=== PATIENT | female | born 2000 | race Caucasian/White ===

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

== ENCOUNTER 2018-04-09 14:03 | Emergency (ER) | payer OTHER ==
--- NOTE | 2018-04-09 14:17 | ERPHSYRPT ---
- History of Present Illness Time Seen by Provider: 04/09/18 14:17 Historian: patient, family Exam Limitations: no limitations Physician History: 17 y/o white female presents with sudden onset bilat suprapubic pain. began this am and has been intermittently severely painful. pt denies n/v/d, denies cp , denies soa. pt denies vaginal bleeding or other vaginal discharge. denies flank pain, dysuria, hematuria and frequency. pt has a h/o ovarian cysts. pt is 2 weeks out from her last menstrual period. pt is not on any medications at this time. pt has a reaction to toradol. 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 on 04/12/18 Timing/Duration: today Activities at Onset: none Quality: cramping, stabbing Abdominal Pain Onset Location: suprapubic (bilat) Pain Radiation: no radiation Severity of Pain-Max: moderate Severity of Pain-Current: mild Modifying Factors: Improves With: nothing Associated Symptoms: No back, No diarrhea, No nausea, No vomiting Previous symptoms: same symptoms as today (but not as severe as today) Allergies/Adverse Reactions: No Known Drug Allergies Allergy (Verified 04/09/18 14:22) Hx Tetanus, Diphtheria Vaccination/Date Given: Yes (2016) - Review of Systems Constitutional: No Symptoms Eyes: No Symptoms Ears, Nose, & Throat: No Symptoms Respiratory: No Symptoms Cardiac: No Symptoms Abdominal/Gastrointestinal: Abdominal Pain (bilat suprapubic) Genitourinary Symptoms: No Symptoms Musculoskeletal: No Symptoms Skin: No Symptoms Neurological: No Symptoms Psychological: No Symptoms Endocrine: No Symptoms Hematologic/Lymphatic: No Symptoms Immunological/Allergic: No Symptoms All Other Systems: Reviewed and Negative - Past Medical History Pertinent Past Medical History: No Neurological History: No Pertinent History ENT History: No Pertinent History Cardiac History: No Pertinent History Respiratory History: No Pertinent History Endocrine Medical History: No Pertinent History Musculoskeletal History: No Pertinent History GI Medical History: No Pertinent History History: No Pertinent History Psycho-Social History: No Pertinent History Female Reproductive Disorders: No Pertinent History - Past Surgical History Past Surgical History: Yes Neuro Surgical History: No Pertinent History Cardiac: No Pertinent History Respiratory: No Pertinent History Gastrointestinal: No Pertinent History Genitourinary: No Pertinent History Musculoskeletal: Other Female Surgical History: No Pertinent History Other Surgical History: foreign body removal right foot - Social History Smoking Status: Current every day smoker Exposure to second hand smoke: Yes Drug Use: none Patient Lives Alone: No - Nursing Vital Signs Nursing Vital Signs: Initial Vital Signs Temperature 97.4 F 04/09/18 14:09 Pulse Rate 82 04/09/18 14:09 Blood Pressure 113/78 04/09/18 14:09 O2 Sat by Pulse Oximetry 100 04/09/18 14:09 Pain Scale Pain Intensity 8 - Physical Exam General Appearance: mild distress, alert, anxiety Eye Exam: PERRL/EOMI Ears, Nose, Throat Exam: normal ENT inspection, moist mucous membranes Neck Exam: normal inspection, non-tender, supple, full range of motion Respiratory Exam: normal breath sounds, lungs clear, airway intact, No chest tenderness, No respiratory distress Cardiovascular Exam: regular rate/rhythm, normal heart sounds, normal peripheral pulses Gastrointestinal/Abdomen Exam: soft, normal bowel sounds, tenderness (mild suprapubic), guarding, No rebound Pelvic Exam: not done Rectal Exam: not done Back Exam: normal inspection, normal range of motion, No CVA tenderness, No vertebral tenderness Extremity Exam: normal inspection, normal range of motion, pelvis stable Neurologic Exam: alert, oriented x 3, cooperative, head of history II-XII nml as tested Skin Exam: normal color, warm, dry Lymphatic Exam: No adenopathy SpO2 Interpretation: normal O2 Delivery: Room Air - Course Nursing assessment & vital signs reviewed: Yes Ordered Tests: Active Orders 24 hr Category Date Time Status ABDOMEN AND PELVIS W/0 CONTRAS [CT] Stat Exams 04/09/18 14:41 Completed AMYLASE Stat Lab 04/09/18 15:00 Completed CBC W DIFF Stat Lab 04/09/18 15:00 Completed CMP Stat Lab 04/09/18 15:00 Completed HCG,QUALITATIVE URINE Stat Lab 04/09/18 15:00 Completed LIPASE Stat Lab 04/09/18 15:00 Completed UA W/RFX UR CULTURE Stat Lab 04/09/18 15:00 Completed Medication Summary Discontinued Medications Generic Name Dose Route Start Last Admin Trade Name Freq PRN Reason Stop Dose Admin Hydromorphone HCl 0.5 mg 04/09/18 14:41 04/09/18 15:02 Hydromorphone 1 Mg/Ml Ampule IV 04/09/18 14:42 0.5 mg STAT ONE Administration Hydromorphone HCl Confirm 04/09/18 14:55 Hydromorphone 1 Mg/Ml Ampule Administered 04/09/18 14:56 Dose 1 mg .ROUTE .STK-MED ONE Hydromorphone HCl 0.5 mg 04/09/18 15:41 04/09/18 15:49 Hydromorphone 1 Mg/Ml Ampule IV 04/09/18 15:42 0.5 mg STAT ONE Administration Hydromorphone HCl Confirm 04/09/18 15:46 Hydromorphone 1 Mg/Ml Ampule Administered 04/09/18 15:47 Dose 1 mg .ROUTE .STK-MED ONE Sodium Chloride 1,000 mls @ 999 mls/hr 04/09/18 14:41 04/09/18 16:11 Sodium Chloride 0.9% 1000 Ml IV 04/09/18 15:41 Infused .Q1H1M STA Infusion Sodium Chloride Confirm 04/09/18 14:55 Sodium Chloride 0.9% 1000 Ml Administered 04/09/18 14:56 Dose 1,000 mls @ ud .ROUTE .STK-MED ONE Ondansetron HCl 4 mg 04/09/18 14:41 04/09/18 15:03 Zofran 4 Mg/2 Ml Vial IV 04/09/18 14:42 4 mg STAT ONE Administration Ondansetron HCl Confirm 04/09/18 14:55 Zofran 4 Mg/2 Ml Vial Administered 04/09/18 14:56 Dose 4 mg .ROUTE .STK-MED ONE Lab/Rad Data: Laboratory Result Diagrams 04/09/18 15:00 04/09/18 15:00 Laboratory Results 04/09/18 04/09/18 04/09/18 Range/Units 15:00 15:00 15:00 WBC (4.0-10.5) K/mm3 RBC (4.1-5.4) M/mm3 Hgb (12.0-16.0) gm/dl Hct (35-47) % MCV (78-100) fl MCH (26-32) pg MCHC (32-36) g/dl RDW (11.5-14.0) % Plt Count (150-450) K/mm3 MPV (6-9.5) fl Gran % (36.0-66.0) % Eos # (Auto) (0-0.5) Absolute Lymphs (auto) (1.0-4.6) Absolute Monos (auto) (0.0-1.3) Lymphocytes % (24.0-44.0) % Monocytes % (0.0-12.0) % Eosinophils % (0.00-5.0) % Basophils % (0.0-0.4) % Absolute Granulocytes (1.4-6.9) Basophils # (0-0.4) Sodium 141 (137-145) mmol/L Potassium 4.2 (3.5-5.1) mmol/L Chloride 108 H (98-107) mmol/L Carbon Dioxide 27 (22-30) mmol/L Anion Gap 10.3 (5-15) MEQ/L BUN 9 (7-17) mg/dL Creatinine 0.64 (0.52-1.04) mg/dL Estimated GFR > 60.0 ML/MIN Glucose 79 (74-106) mg/dL Calcium 9.1 (8.4-10.2) mg/dL Total Bilirubin 0.20 (0.2-1.3) mg/dL AST 20 (14-36) U/L ALT 21 (0-35) U/L Alkaline Phosphatase 71 (38-126) U/L Serum Total Protein 7.1 (6.3-8.2) g/dL Albumin 4.0 (3.5-5.0) g/dL Amylase 85 (30-110) U/L Lipase 135 (23-300) U/L Urine Color YELLOW (YELLOW) Urine Appearance SLIGHTLY CLOUDY (CLEAR) Urine pH 5.0 (5-6) Ur Specific [place] 1.025 (1.005-1.025) Urine Protein 30 (Negative) Urine Ketones NEGATIVE (NEGATIVE) Urine Blood NEGATIVE (0-5) Morgan/ul Urine Nitrite NEGATIVE (NEGATIVE) Urine Bilirubin NEGATIVE (NEGATIVE) Urine Urobilinogen NEGATIVE (0-1) mg/dL Ur Leukocyte Esterase NEGATIVE (NEGATIVE) Urine WBC (Auto) 3-5 (0-5) /HPF Urine RBC (Auto) 0-2 (0-2) /HPF U Epithel Cells (Auto) RARE (FEW) /HPF Urine Bacteria (Auto) RARE (NEGATIVE) /HPF Urine Mucus (Auto) MANY (NEGATIVE) /HPF Urine Culture Reflexed NO (NO) Urine Glucose NEGATIVE (NEGATIVE) mg/dL Urine HCG, Qual NEGATIVE (Negative) 04/09/18 Range/Units 15:00 WBC 12.1 H (4.0-10.5) K/mm3 RBC 4.38 (4.1-5.4) M/mm3 Hgb 13.6 (12.0-16.0) gm/dl Hct 41.6 (35-47) % MCV 95.0 (78-100) fl MCH 31.1 (26-32) pg MCHC 32.7 (32-36) g/dl RDW 13.3 (11.5-14.0) % Plt Count 241 (150-450) K/mm3 MPV 10.2 H (6-9.5) fl Gran % 58.2 (36.0-66.0) % Eos # (Auto) 0.12 (0-0.5) Absolute Lymphs (auto) 4.14 (1.0-4.6) Absolute Monos (auto) 0.78 (0.0-1.3) Lymphocytes % 34.2 (24.0-44.0) % Monocytes % 6.4 (0.0-12.0) % Eosinophils % 1.0 (0.00-5.0) % Basophils % 0.2 (0.0-0.4) % Absolute Granulocytes 7.05 H (1.4-6.9) Basophils # 0.03 (0-0.4) Sodium (137-145) mmol/L Potassium (3.5-5.1) mmol/L Chloride (98-107) mmol/L Carbon Dioxide (22-30) mmol/L Anion Gap (5-15) MEQ/L BUN (7-17) mg/dL Creatinine (0.52-1.04) mg/dL Estimated GFR ML/MIN Glucose (74-106) mg/dL Calcium (8.4-10.2) mg/dL Total Bilirubin (0.2-1.3) mg/dL AST (14-36) U/L ALT (0-35) U/L Alkaline Phosphatase (38-126) U/L Serum Total Protein (6.3-8.2) g/dL Albumin (3.5-5.0) g/dL Amylase (30-110) U/L Lipase (23-300) U/L Urine Color (YELLOW) Urine Appearance (CLEAR) Urine pH (5-6) Ur Specific [place] (1.005-1.025) Urine Protein (Negative) Urine Ketones (NEGATIVE) Urine Blood (0-5) Morgan/ul Urine Nitrite (NEGATIVE) Urine Bilirubin (NEGATIVE) Urine Urobilinogen (0-1) mg/dL Ur Leukocyte Esterase (NEGATIVE) Urine WBC (Auto) (0-5) /HPF Urine RBC (Auto) (0-2) /HPF U Epithel Cells (Auto) (FEW) /HPF Urine Bacteria (Auto) (NEGATIVE) /HPF Urine Mucus (Auto) (NEGATIVE) /HPF Urine Culture Reflexed (NO) Urine Glucose (NEGATIVE) mg/dL Urine HCG, Qual (Negative) - Progress Progress: improved, pain not gone completely, re-examined Progress Note: 04/09/18 16:[address] scan abd/pelvis-mild fecal stasis; no acute process Counseled pt/family regarding: lab results, diagnosis, need for follow-up, rad results - Departure Time of Disposition: 16:24 Departure Disposition: Home Clinical Impression: Abdominal pain, Constipation Condition: Stable Critical Care Time: No Referrals: GAB MURILLO MD [Primary Care Provider] - Additional Instructions: drink plenty of fluids. add ibuprofen for pain. keep your appointment with concrete technician on 04/12/18 Prescriptions: Hydrocodone/APAP 5-325 Tab^^^ [[place] 5-325 Tablet^^^] 1 tab PO Q8H PRN PRN #5 tablet MDD 3 PRN Reason: Pain
[2018-04-09] MEDS ORDERED: Zofran 4 MG/2 ML VIAL IV ONE (14:41)
[2018-04-09] MEDS ORDERED: Sodium Chloride 0.9% 1000 ML 1,000 ML IV STA (14:41)
[2018-04-09] MEDS ORDERED: Hydromorphone 1 mg/ml Ampule IV ONE ×2 (14:41→15:41)
[2018-04-09] MEDS ORDERED: Zofran 4 MG/2 ML VIAL ONE (14:55)
[2018-04-09] MEDS ORDERED: Hydromorphone 1 mg/ml Ampule ONE ×2 (14:55→15:46)
[2018-04-09] MEDS ORDERED: Sodium Chloride 0.9% 1000 ML 1,000 ML ONE (14:55)
[2018-04-09 15:05] LABS: BASOPHIL % 0.2 % (0.0-0.4); Basophil (Absolute #) 0.03 (0-0.4); Eosinophil (Absolute #) 0.12 (0-0.5); Granulocyte Absolute (ANC) 7.05 (1.4-6.9); Granulocytes % 58.2 % (36.0-66.0); Hematocrit 41.6 % (35-47); Hemoglobin 13.6 gm/dl (12.0-16.0); Lymphocyte (Absolute #) 4.14 (1.0-4.6); Lymphocytes % 34.2 % (24.0-44.0); Mean Corpuscular Hemoglobin 31.1 pg (26-32); Mean Corpuscular Hgb Concent. 32.7 g/dl (32-36); Mean Platelet Volume 10.2 fl (6-9.5); Monocyte (Absolute #) 0.78 (0.0-1.3); Monocytes % 6.4 % (0.0-12.0); Platelet Count 241 K/mm3 (150-450); Red Blood Count 4.38 M/mm3 (4.1-5.4); Red Cell Distribution Width 13.3 % (11.5-14.0); White Blood Count 12.1 K/mm3 (4.0-10.5)
[2018-04-09 15:17] LABS: Appearance SLIGHTLY CLOUDY (CLEAR); Bacteria RARE /HPF (NEGATIVE); Bilirubin NEGATIVE (NEGATIVE); Blood NEGATIVE Ery/ul (0-5); Epithelial Cells RARE /HPF (FEW); Glucose NEGATIVE (NEGATIVE); Ketones NEGATIVE (NEGATIVE); Leukocyte Esterase NEGATIVE (NEGATIVE); Mucus MANY /HPF (NEGATIVE); Nitrite NEGATIVE (NEGATIVE); Protein,Urine Dip 30 (Negative); RBC 0-2 /HPF (0-2); Specific Gravity 1.025 (1.005-1.025); Urobilinogen NEGATIVE mg/dL (0-1)
[2018-04-09 15:22] LABS: ALKALINE PHOSPHATASE 71 U/L (38-126); AMYLASE 85 U/L (30-110); ANION GAP 10.3 MEQ/L (5-15); BLOOD UREA NITROGEN 9 mg/dL (7-17); CHLORIDE 108 mmol/L (98-107); Calcium 9.1 mg/dL (8.4-10.2); Carbon Dioxide 27 mmol/L (22-30); Creatinine 1 0.64 mg/dL (0.52-1.04); Glucose 79 mg/dL (74-106); LIPASE 135 U/L (23-300); Potassium 4.2 mmol/L (3.5-5.1); SGOT/AST 20 U/L (14-36); SGPT/ALT 21 U/L (0-35); SODIUM 141 mmol/L (137-145); Total Protein 7.1 g/dL (6.3-8.2)
--- NOTE | 2018-04-09 16:11 | XRAY ---
Indication: Pelvic pain. History polycystic ovary syndrome. Multiple contiguous axial images obtained through the abdomen and pelvis without contrast as ordered. Comparison: None Lung bases demonstrates minimal fibrosis/scarring. No infiltrate or effusion. Heart is not enlarged. Noncontrasted stomach and bowel loops appear nonobstructed. Normal appendix. Mild diffuse scattered colonic fecal debris throughout. No free fluid/air. Remaining liver, gallbladder, pancreas, spleen, adrenal glands, kidneys, ureters, bladder, uterus, and aorta appear unremarkable for noncontrast exam. Osseous structures intact. Small left femur head bone island. No ventral or inguinal hernias. Impression: 1. Mild fecal stasis without obstruction and left femur head bone island. 2. Remaining CT abdomen/pelvis without contrast exam is negative. CTDI 19.96
[2018-04-09 16:50] VITALS: BP 106/66; PULSE 90; O2SAT 97
== END 2018-04-09 16:53 | disposition home or self-care (01) ==
LOC: ED 14:03
DX: R10.9 Unspecified abdominal pain (principal); K59.00 Constipation, unspecified
CPT/HCPCS: 36000; 36415; 74176; 80053; 81001; 82150; 83690; 84703; 85025; 96360; 96374; 96375; 96376; 99284; J1170; J2405

== ENCOUNTER 2018-08-12 19:28 | Emergency (ER) | payer OTHER ==
[2018-08-12] MEDS ORDERED: Sodium Chloride 0.9% 1000 ML 1,000 ML IV STA (19:45)
[2018-08-12] MEDS ORDERED: Zofran 4 MG/2 ML VIAL IV ONE (19:45)
[2018-08-12] MEDS ORDERED: Hydromorphone 1 mg/ml Ampule IV ONE ×2 (19:45→20:41)
--- NOTE | 2018-08-12 19:45 | ERPHSYRPT ---
- History of Present Illness Time Seen by Provider: 08/12/18 19:40 Historian: patient, family Exam Limitations: no limitations Physician History: 17 y/o white female presents with sudden onset of lower suprapubic abd pain. 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 pain is severe. pain occurred during sex with boyfriend. no vaginal or rectal bleeding. pt has a h/o ovarian cyst. Timing/Duration: today, sudden, worse Activities at Onset: activity (sexual intercourse) Abdominal Pain Onset Location: suprapubic Pain Radiation: no radiation Severity of Pain-Max: moderate Severity of Pain-Current: moderate Modifying Factors: Improves With: nothing Associated Symptoms: denies symptoms Previous symptoms: same symptoms as today Allergies/Adverse Reactions: ketorolac [From Toradol] Allergy (Verified 08/12/18 19:39) Hx Tetanus, Diphtheria Vaccination/Date Given: Yes (2016) - Review of Systems Constitutional: No Symptoms Eyes: No Symptoms Ears, Nose, & Throat: No Symptoms Respiratory: No Symptoms Cardiac: No Symptoms Abdominal/Gastrointestinal: Abdominal Pain (suprapubic) Genitourinary Symptoms: No Symptoms Musculoskeletal: No Symptoms Skin: No Symptoms Neurological: No Symptoms Psychological: No Symptoms Endocrine: No Symptoms Hematologic/Lymphatic: No Symptoms Immunological/Allergic: No Symptoms All Other Systems: Reviewed and Negative - Past Medical History Pertinent Past Medical History: No Neurological History: No Pertinent History ENT History: No Pertinent History Cardiac History: No Pertinent History Respiratory History: No Pertinent History Endocrine Medical History: No Pertinent History Musculoskeletal History: No Pertinent History GI Medical History: No Pertinent History History: No Pertinent History Psycho-Social History: No Pertinent History Female Reproductive Disorders: No Pertinent History - Past Surgical History Past Surgical History: Yes Neuro Surgical History: No Pertinent History Cardiac: No Pertinent History Respiratory: No Pertinent History Gastrointestinal: No Pertinent History Genitourinary: No Pertinent History Musculoskeletal: Other Female Surgical History: No Pertinent History Other Surgical History: foreign body removal right foot - Social History Smoking Status: Current every day smoker How long have you smoked: 2 years Exposure to second hand smoke: Yes Drug Use: none Patient Lives Alone: No - Nursing Vital Signs Nursing Vital Signs: Initial Vital Signs Pulse Rate 51 L 08/12/18 19:29 Blood Pressure 217/79 08/12/18 19:29 Pain Scale Pain Intensity 8 - Physical Exam General Appearance: moderate distress, alert, anxiety Eye Exam: PERRL/EOMI, eyes nml inspection Ears, Nose, Throat Exam: normal ENT inspection, moist mucous membranes Neck Exam: normal inspection, non-tender, supple, full range of motion Respiratory Exam: normal breath sounds, lungs clear, airway intact, No chest tenderness, No respiratory distress Cardiovascular Exam: regular rate/rhythm, normal heart sounds, normal peripheral pulses Gastrointestinal/Abdomen Exam: soft, tenderness (suprapubic midline), guarding, No rebound Pelvic Exam: not done Rectal Exam: not done Back Exam: normal inspection, normal range of motion, No CVA tenderness, No vertebral tenderness Extremity Exam: normal inspection, normal range of motion, pelvis stable Neurologic Exam: alert, oriented x 3, 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, 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 Skin Exam: normal color, warm, dry Lymphatic Exam: No adenopathy SpO2 Interpretation: normal O2 Delivery: Room Air Ordered Tests: Active Orders 24 hr Category Date Time Status IV Insertion STAT Care 08/12/18 19:45 Active ABDOMEN AND PELVIS W/0 CONTRAS [CT] Stat Exams 08/12/18 19:46 Taken AMYLASE Stat Lab 08/12/18 19:45 Completed CBC W DIFF Stat Lab 08/12/18 19:45 Completed CMP Stat Lab 08/12/18 19:45 Completed HCG QUALITATIVE,SERUM Stat Lab 08/12/18 19:45 Completed LIPASE Stat Lab 08/12/18 19:45 Completed Lactic Acid Stat Lab 08/12/18 19:53 Completed UA W/RFX UR CULTURE Stat Lab 08/12/18 19:45 Completed Medication Summary Discontinued Medications Generic Name Dose Route Start Last Admin Trade Name Yelitza PRN Reason Stop Dose Admin Hydromorphone HCl 1 mg 08/12/18 19:45 08/12/18 19:57 Hydromorphone 1 Mg/Ml Ampule IV 08/12/18 19:46 1 mg STAT ONE Administration Hydromorphone HCl Confirm 08/12/18 19:52 Hydromorphone 1 Mg/Ml Ampule Administered 08/12/18 19:53 Dose 1 mg .ROUTE .STK-MED ONE Hydromorphone HCl 0.5 mg 08/12/18 20:41 08/12/18 21:00 Hydromorphone 1 Mg/Ml Ampule IV 08/12/18 20:42 0.5 mg STAT ONE Administration Hydromorphone HCl Confirm 08/12/18 20:58 Hydromorphone 1 Mg/Ml Ampule Administered 08/12/18 20:59 Dose 1 mg .ROUTE .STK-MED ONE Sodium Chloride 1,000 mls @ 999 mls/hr 08/12/18 19:45 08/12/18 20:58 Sodium Chloride 0.9% 1000 Ml IV 08/12/18 20:45 Infused .Q1H1M STA Infusion Sodium Chloride Confirm 08/12/18 19:53 Sodium Chloride 0.9% 1000 Ml Administered 08/12/18 19:54 Dose 1,000 mls @ ud .ROUTE .STK-MED ONE Ondansetron HCl 4 mg 08/12/18 19:45 08/12/18 19:57 Zofran 4 Mg/2 Ml Vial IV 08/12/18 19:46 4 mg STAT ONE Administration Ondansetron HCl Confirm 08/12/18 19:52 Zofran 4 Mg/2 Ml Vial Administered 08/12/18 19:53 Dose 4 mg .ROUTE .STK-MED ONE Lab/Rad Data: Laboratory Result Diagrams 08/12/18 19:45 08/12/18 19:45 Laboratory Results 08/12/18 08/12/18 08/12/18 Range/Units 19:53 19:45 19:45 WBC (4.0-10.5) K/mm3 RBC (4.1-5.4) M/mm3 Hgb (12.0-16.0) gm/dl Hct (35-47) % MCV (78-100) fl MCH (26-32) pg MCHC (32-36) g/dl RDW (11.5-14.0) % Plt Count (150-450) K/mm3 MPV (6-9.5) fl Gran % (36.0-66.0) % Eos # (Auto) (0-0.5) Absolute Lymphs (auto) (1.0-4.6) Absolute Monos (auto) (0.0-1.3) Lymphocytes % (24.0-44.0) % Monocytes % (0.0-12.0) % Eosinophils % (0.00-5.0) % Basophils % (0.0-0.4) % Absolute Granulocytes (1.4-6.9) Basophils # (0-0.4) Sodium (137-145) mmol/L Potassium (3.5-5.1) mmol/L Chloride (98-107) mmol/L Carbon Dioxide (22-30) mmol/L Anion Gap (5-15) MEQ/L BUN (7-17) mg/dL Creatinine (0.52-1.04) mg/dL Estimated GFR ML/MIN Glucose (74-106) mg/dL Lactic Acid 0.8 (0.4-2.0) Calcium (8.4-10.2) mg/dL Total Bilirubin (0.2-1.3) mg/dL AST (14-36) U/L ALT (0-35) U/L Alkaline Phosphatase (38-126) U/L Serum Total Protein (6.3-8.2) g/dL Albumin (3.5-5.0) g/dL Amylase (30-110) U/L Lipase (23-300) U/L Serum , Qual NEGATIVE (Negative) Urine Color STRAW (YELLOW) Urine Appearance CLEAR (CLEAR) Urine pH 6.0 (5-6) Ur Specific [place] 1.006 (1.005-1.025) Urine Protein NEGATIVE (Negative) Urine Ketones NEGATIVE (NEGATIVE) Urine Blood NEGATIVE (0-5) Morgan/ul Urine Nitrite NEGATIVE (NEGATIVE) Urine Bilirubin NEGATIVE (NEGATIVE) Urine Urobilinogen NEGATIVE (0-1) mg/dL Ur Leukocyte Esterase NEGATIVE (NEGATIVE) Urine WBC (Auto) NONE (0-5) /HPF Urine RBC (Auto) NONE (0-2) /HPF U Epithel Cells (Auto) NONE (FEW) /HPF Urine Mucus (Auto) SLIGHT (NEGATIVE) /HPF Urine Culture Reflexed NO (NO) Urine Glucose NEGATIVE (NEGATIVE) mg/dL 08/12/18 08/12/18 Range/Units 19:45 19:45 WBC 9.6 (4.0-10.5) K/mm3 RBC 4.56 (4.1-5.4) M/mm3 Hgb 14.3 (12.0-16.0) gm/dl Hct 42.5 (35-47) % MCV 93.2 (78-100) fl MCH 31.4 (26-32) pg MCHC 33.6 (32-36) g/dl RDW 13.0 (11.5-14.0) % Plt Count 232 (150-450) K/mm3 MPV 10.7 H (6-9.5) fl Gran % 50.6 (36.0-66.0) % Eos # (Auto) 0.14 (0-0.5) Absolute Lymphs (auto) 3.90 (1.0-4.6) Absolute Monos (auto) 0.64 (0.0-1.3) Lymphocytes % 40.8 (24.0-44.0) % Monocytes % 6.7 (0.0-12.0) % Eosinophils % 1.5 (0.00-5.0) % Basophils % 0.4 (0.0-0.4) % Absolute Granulocytes 4.84 (1.4-6.9) Basophils # 0.04 (0-0.4) Sodium 139 (137-145) mmol/L Potassium 4.2 (3.5-5.1) mmol/L Chloride 105 (98-107) mmol/L Carbon Dioxide 22 (22-30) mmol/L Anion Gap 16.7 H (5-15) MEQ/L BUN 10 (7-17) mg/dL Creatinine 0.63 (0.52-1.04) mg/dL Estimated GFR > 60.0 ML/MIN Glucose 95 (74-106) mg/dL Lactic Acid (0.4-2.0) Calcium 9.7 (8.4-10.2) mg/dL Total Bilirubin 0.50 (0.2-1.3) mg/dL AST 29 (14-36) U/L ALT 20 (0-35) U/L Alkaline Phosphatase 69 (38-126) U/L Serum Total Protein 8.5 H (6.3-8.2) g/dL Albumin 4.9 (3.5-5.0) g/dL Amylase 84 (30-110) U/L Lipase 59 (23-300) U/L Serum , Qual (Negative) Urine Color (YELLOW) Urine Appearance (CLEAR) Urine pH (5-6) Ur Specific [place] (1.005-1.025) Urine Protein (Negative) Urine Ketones (NEGATIVE) Urine Blood (0-5) Morgan/ul Urine Nitrite (NEGATIVE) Urine Bilirubin (NEGATIVE) Urine Urobilinogen (0-1) mg/dL Ur Leukocyte Esterase (NEGATIVE) Urine WBC (Auto) (0-5) /HPF Urine RBC (Auto) (0-2) /HPF U Epithel Cells (Auto) (FEW) /HPF Urine Mucus (Auto) (NEGATIVE) /HPF Urine Culture Reflexed (NO) Urine Glucose (NEGATIVE) mg/dL - Progress Progress: improved, pain not gone completely, re-examined Progress Note: 08/12/18 21:26 ct abd/pelvis-no acute findings. Counseled pt/family regarding: lab results, diagnosis, need for follow-up, rad results - Departure Departure Disposition: Home Clinical Impression: Abdominal pain Condition: Stable Critical Care Time: No Referrals: GAB MURILLO MD [Primary Care Provider] - Additional Instructions: follow up tomorrow with primary doctor for further management
[2018-08-12] MEDS ORDERED: Hydromorphone 1 mg/ml Ampule ONE ×3 (19:52→21:55)
[2018-08-12] MEDS ORDERED: Zofran 4 MG/2 ML VIAL ONE (19:52)
[2018-08-12] MEDS ORDERED: Sodium Chloride 0.9% 1000 ML 1,000 ML ONE (19:53)
[2018-08-12 20:02] LABS: BASOPHIL % 0.4 % (0.0-0.4); Basophil (Absolute #) 0.04 (0-0.4); Eosinophil % 1.5 % (0.00-5.0); Eosinophil (Absolute #) 0.14 (0-0.5); Granulocyte Absolute (ANC) 4.84 (1.4-6.9); Granulocytes % 50.6 % (36.0-66.0); Hematocrit 42.5 % (35-47); Hemoglobin 14.3 gm/dl (12.0-16.0); Lymphocytes % 40.8 % (24.0-44.0); Mean Cell Volume 93.2 fl (78-100); Mean Corpuscular Hemoglobin 31.4 pg (26-32); Mean Corpuscular Hgb Concent. 33.6 g/dl (32-36); Mean Platelet Volume 10.7 fl (6-9.5); Monocyte (Absolute #) 0.64 (0.0-1.3); Monocytes % 6.7 % (0.0-12.0); Platelet Count 232 K/mm3 (150-450); Red Blood Count 4.56 M/mm3 (4.1-5.4); White Blood Count 9.6 K/mm3 (4.0-10.5)
[2018-08-12 20:14] LABS: ALBUMIN 4.9 g/dL (3.5-5.0); ALKALINE PHOSPHATASE 69 U/L (38-126); AMYLASE 84 U/L (30-110); ANION GAP 16.7 MEQ/L (5-15); BLOOD UREA NITROGEN 10 mg/dL (7-17); CHLORIDE 105 mmol/L (98-107); Calcium 9.7 mg/dL (8.4-10.2); Carbon Dioxide 22 mmol/L (22-30); Creatinine 1 0.63 mg/dL (0.52-1.04); Glucose 95 mg/dL (74-106); Potassium 4.2 mmol/L (3.5-5.1); SGOT/AST 29 U/L (14-36); SGPT/ALT 20 U/L (0-35); SODIUM 139 mmol/L (137-145); Total Protein 8.5 g/dL (6.3-8.2)
[2018-08-12 21:10] LABS: Appearance CLEAR (CLEAR); Bilirubin NEGATIVE (NEGATIVE); Blood NEGATIVE Ery/ul (0-5); Glucose NEGATIVE (NEGATIVE); Ketones NEGATIVE (NEGATIVE); Leukocyte Esterase NEGATIVE (NEGATIVE); Mucus SLIGHT /HPF (NEGATIVE); Nitrite NEGATIVE (NEGATIVE); Protein,Urine Dip NEGATIVE (Negative); Specific Gravity 1.006 (1.005-1.025); Urobilinogen NEGATIVE mg/dL (0-1)
[2018-08-12] MEDS ORDERED: Hydromorphone 1 mg/ml Ampule IM ONE (21:29)
[2018-08-12] MEDS ORDERED: NORCO 5/325 MG PO ONE (21:30)
[2018-08-12 21:55] VITALS: BP 148/65; PULSE 69; O2SAT 95
[2018-08-12] MEDS ORDERED: NORCO 5/325 MG ONE (21:55)
--- NOTE | 2018-08-13 10:49 | XRAY ---
Exam: CT of the abdomen and pelvis without IV contrast from 08/12/2018. CTDI: 18.82 Comparison: CT of the abdomen and pelvis without IV contrast from 04/09/2018. Indication: 17-year-old female with suprapubic pain during coitus with partner, no vaginal or rectal bleeding, history of ovarian cysts Technique: Non-IV contrast axial images were obtained through the abdomen and pelvis. Reconstructed coronal and sagittal images were created and reviewed. Findings: The visualized lung bases appear clear. Evaluation of the solid organs of the abdomen is decreased on a non-IV contrast only. However, no gross abnormality of the liver, spleen, or pancreas is seen. The gallbladder is partially distended and reveals no dense calcifications within it. No definite biliary duct distention is seen. The adrenal glands appear of normal size and configuration. The kidneys appear of normal size and shape. No renal calculi or hydronephrosis is seen. The abdominal aorta appears of normal diameter. No abnormal retroperitoneal lymphadenopathy is seen. I see no evidence of ventral hernia or free intraperitoneal air. Scattered stool is seen throughout the colon. I see no evidence of bowel obstruction or bowel wall thickening. I see no evidence of acute appendicitis. The urinary bladder is moderately distended, but appears otherwise unremarkable. The uterus is mildly anteflexed. Both ovaries appear grossly unremarkable. There is no significant free intraperitoneal fluid or enlarged pelvic lymph nodes. No significant diverticula are seen. The bones reveal a calcified bone island within the left femoral head and a tiny bone island within the medial aspect of the left pubis representing no change. No acute fracture or aggressive bone lesion is seen. Impression: 1. No acute process is seen within the abdomen or pelvis. This is essentially unchanged from 04/09/2018.
== END 2018-08-12 22:14 | disposition home or self-care (01) ==
LOC: ED 19:28
DX: R10.9 Unspecified abdominal pain (principal)
CPT/HCPCS: 36000; 36415; 74176; 80053; 81001; 81025; 82150; 83605; 83690; 85025; 96360; 96372; 96374; 96375; 96376; 99284; J1170; J2405; A9270-GY

== ENCOUNTER 2018-11-25 17:57 | Emergency (ER) | payer OTHER ==
[2018-11-25 18:15] VITALS: BP 152/84; PULSE 90
[2018-11-25 18:17] VITALS: O2SAT 95
--- NOTE | 2018-11-25 18:49 | ERPHSYRPT ---
- History of Present Illness Time Seen by Provider: 11/25/18 18:15 Source: patient Exam Limitations: no limitations Patient Subjective Stated Complaint: Skin rash Triage Nursing Assessment: Patient ambulated back to ED and transferred self to bed. Patient A+O X 3. Patient's skin pink, warm and dry. Patient complains of rash to left outer lower leg and left outer arm. Patient has raised, hard, warm area noted to left outer arm. Patient also has raised, hard, warm area to outer left leg with redness. Patient states pain to left outer leg is constant burning pain 7/10. Physician History: Patient has pain red skin lesion to the left lateral lower leg, left outer proximal forearm and back. She has had similar lesions in the past. Timing/Duration: day(s) (3) Quality: burning, painful Severity: moderate Location: extremities (left lower leg, left forearm) Possible Causes: no cause identified Modifying Factors: Improves With: other (nothing tried) Associated Symptoms: change in skin texture (redness, tender), No blisters, No difficulty breathing, No edema, No fever, No flushing, No headache, No hives, No jaundice, No malaise, No nasal congestion, No numbness, No pallor, No paresthesia, No petechiae, No sore throat, No swelling/mass/lumps, No tingling Allergies/Adverse Reactions: ketorolac [From Toradol] Allergy (Verified 11/25/18 18:05) Hx Tetanus, Diphtheria Vaccination/Date Given: Yes (2016) Hx Influenza Vaccination/Date Given: No Hx Pneumococcal Vaccination/Date Given: No Immunizations Up to Date: Yes - Review of Systems Constitutional: No Fever, No Chills, No Fatigue Eyes: No Eye Pain, No Vision Changes Ears, Nose, & Throat: No Mouth Swelling, No Throat Pain, No Throat Swelling, No Painful Swallowing Respiratory: No Cough, No Dyspnea Cardiac: No Chest Pain, No Palpitations, No Syncope Abdominal/Gastrointestinal: No Abdominal Pain, No Nausea, No Vomiting Genitourinary Symptoms: No Dysuria, No Frequency, No Hematuria, No Flank Pain Musculoskeletal: No Back Pain, No Neck Pain, No Joint Pain, No Joint Swelling Skin: Cellulitis, No Pruritis, No Rash Neurological: No Focal Weakness, No Parasthesia, No Sensory Changes Psychological: No Anxiety, No Emotional Lability Endocrine: No Hair Changes, No Excessive Sweating Hematologic/Lymphatic: No Easy Bleeding, No Easy Bruising All Other Systems: Reviewed and Negative - Past Medical History Pertinent Past Medical History: No Neurological History: No Pertinent History ENT History: No Pertinent History Cardiac History: No Pertinent History Respiratory History: No Pertinent History Endocrine Medical History: No Pertinent History Musculoskeletal History: No Pertinent History GI Medical History: No Pertinent History History: No Pertinent History Psycho-Social History: No Pertinent History Female Reproductive Disorders: No Pertinent History - Past Surgical History Past Surgical History: Yes Neuro Surgical History: No Pertinent History Cardiac: No Pertinent History Respiratory: No Pertinent History Gastrointestinal: No Pertinent History Genitourinary: No Pertinent History Musculoskeletal: Other Female Surgical History: No Pertinent History Other Surgical History: foreign body removal right foot - Social History Smoking Status: Never smoker How long have you smoked: 2 years Exposure to second hand smoke: Yes Drug Use: marijuana Patient Lives Alone: No - Female History Hx Last Menstrual Period: November 03 Hx Now: No - Nursing Vital Signs Nursing Vital Signs: Initial Vital Signs Temperature 99.1 F 11/25/18 18:07 Pulse Rate 90 11/25/18 18:07 Respiratory Rate 18 11/25/18 18:07 Blood Pressure 152/84 11/25/18 18:07 O2 Sat by Pulse Oximetry 99 11/25/18 18:07 Pain Scale Pain Intensity 7 - Physical Exam General Appearance: no apparent distress Eye Exam: eyes nml inspection, scleral icterus Neck Exam: normal inspection, non-tender, supple, full range of motion, No meningismus Respiratory Exam: normal breath sounds, lungs clear, airway intact, No chest tenderness, No respiratory distress, No diminished breath sounds, No accessory muscle use, No crackles/rales, No rhonchi, No wheezing, No stridor Cardiovascular Exam: regular rate/rhythm, normal heart sounds, normal peripheral pulses, capillary refill <2 sec Gastrointestinal/Abdomen Exam: soft, normal bowel sounds, No tenderness, No distention, No mass, No rebound Back Exam: normal inspection, No CVA tenderness, No vertebral tenderness, No rash Extremity Exam: normal inspection, normal range of motion, No escamilla, No contusions, No elana's sign, No pedal edema, No swelling Neurologic Exam: alert, oriented x 3, cooperative, 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, normal mood/affect, sensation nml, No motor deficits Skin Exam: normal color, warm, dry, other (redness that is confluent in the left lower lateral extremity measuring about 4cm with no drainage; 2cm erythematous patch to the proximal lateral forearm, non-fluctuant, no drainage) SpO2 Interpretation: normal SpO2: 95 O2 Delivery: Room Air - Departure Departure Disposition: Home Clinical Impression: Cellulitis of left lower leg, Cellulitis of left forearm, Elevated blood pressure reading without diagnosis of hypertension Condition: Good Critical Care Time: No Referrals: GAB MURILLO MD [Primary Care Provider] - 11/27/18 Instructions: Cellulitis (Skin Infection), Adult (DC), DASH Diet Additional Instructions: Return if any worse pain, redness, swelling, new drainage, new fever aany concerning signs or symptoms that were not present at today's emergency department visit for immediate reevaluation in the emergency department. Prescriptions: Chlorhexidine Gluconate [HIBICLENS 4% Scrub] 1 ml TOP DAILY #1 bottle Smz/Tmp Ds Tablet [Bactrim Ds Tablet] 1 tab PO Q12H #20 tablet
== END 2018-11-25 19:10 | disposition home or self-care (01) ==
LOC: ED 17:57
DX: L03.116 Cellulitis of left lower limb (principal); L03.114 Cellulitis of left upper limb; R03.0 Elevated blood-pressure reading, without diagnosis of hypertension
CPT/HCPCS: 99283

== ENCOUNTER 2020-04-01 11:03 | Observation (INO) | payer OTHER ==
[2020-04-01 11:36] VITALS: BP 119/70; PULSE 85
[2020-04-01] MEDS ORDERED: Lactated Ringers 1,000 ML IV ONE (13:04)
[2020-04-01] MEDS ORDERED: Zofran 4 MG/2 ML VIAL IV ONE (13:15)
[2020-04-01 14:10] LABS: Hemoglobin 12.2 gm/dl (12.0-16.0); Mean Cell Volume 93.1 fl (78-100); Mean Corpuscular Hemoglobin 29.9 pg (26-32); Mean Corpuscular Hgb Concent. 32.1 g/dl (32-36); Mean Platelet Volume 10.1 fl (7.5-11.0); Platelet Count 408 K/mm3 (150-450); Red Blood Count 4.08 M/mm3 (4.1-5.4); Red Cell Distribution Width 13.4 % (11.5-14.0); White Blood Count 22.9 K/mm3 (4.0-10.5)
[2020-04-01 14:49] LABS: BLOOD UREA NITROGEN 7 mg/dL (7-17); CHLORIDE 107 mmol/L (98-107); Calcium 9.5 mg/dL (8.4-10.2); Carbon Dioxide 20 mmol/L (22-30); Creatinine 1 0.42 mg/dL (0.52-1.04); EST GLOMERULAR FILTRATION RATE > 60.0 ML/MIN; Glucose 74 mg/dL (74-106); SODIUM 134 mmol/L (137-145)
[2020-04-01 15:44] LABS: Lymphocytes 13 % (24-44); Monocyte 5 % (0.0-12.0); Neutrophils 82 % (36.0-66.0); Platelet Estimate NORMAL (NORMAL); Total Cells Counted 100; Toxic Granulation 1+
== END 2020-04-01 15:30 | disposition home or self-care (01) ==
LOC: OB 11:03
PROVIDERS: ADMIT Obstetrics & Gynecology; ATTEND Obstetrics & Gynecology
DX: O21.9 Vomiting of pregnancy, unspecified (principal); Z3A.33 33 weeks gestation of pregnancy
CPT/HCPCS: 36415; 80048; 83880; 85025; G0378; J2405

== ENCOUNTER 2020-05-06 12:59 | Observation (INO) | payer OTHER ==
[2020-05-06 13:30] VITALS: BP 134/77; PULSE 106
== END 2020-05-06 14:30 | disposition home or self-care (01) ==
LOC: OB 12:59
PROVIDERS: ADMIT Obstetrics & Gynecology; ATTEND Obstetrics & Gynecology
DX: Z34.03 Encounter for supervision of normal first pregnancy, third trimester (principal); Z3A.38 38 weeks gestation of pregnancy
CPT/HCPCS: 59025; G0378

== ENCOUNTER 2020-05-07 09:30 | Inpatient (IN) | payer OTHER ==
[2020-05-07] MEDS ORDERED: XYLOCAINE 1% HCL 20 ML MDV IJ PRN (19:50)
[2020-05-07] MEDS ORDERED: Zofran 4 MG/2 ML VIAL IV PRN (19:50)
[2020-05-07 21:50] LABS: Absolute Neutrophil Ct (ANC) 7.74 (1.4-6.9); BASOPHIL % 0.2 % (0.0-0.4); Basophil (Absolute #) 0.02 (0-0.4); Eosinophil % 0.8 % (0.00-5.0); Eosinophil (Absolute #) 0.09 (0-0.5); Hematocrit 32.2 % (35-47); Hemoglobin 10.4 gm/dl (12.0-16.0); Lymphocyte (Absolute #) 2.92 (1.0-4.6); Lymphocytes % 25.2 % (24.0-44.0); Mean Cell Volume 91.2 fl (78-100); Mean Corpuscular Hemoglobin 29.5 pg (26-32); Mean Corpuscular Hgb Concent. 32.3 g/dl (32-36); Mean Platelet Volume 10.4 fl (7.5-11.0); Monocyte (Absolute #) 0.82 (0.0-1.3); Monocytes % 7.1 % (0.0-12.0); Neutrophil % 66.7 % (36.0-66.0); Platelet Count 335 K/mm3 (150-450); Red Blood Count 3.53 M/mm3 (4.1-5.4); Red Cell Distribution Width 14.3 % (11.5-14.0); White Blood Count 11.6 K/mm3 (4.0-10.5)
[2020-05-07 22:07] LABS: Amphetamine,Urine NEGATIVE (NEGATIVE); Barbiturate,Urine NEGATIVE (NEGATIVE); Benzodiazepine,Urine NEGATIVE (NEGATIVE); Cocaine,Urine NEGATIVE (NEGATIVE); Methadone,Urine NEGATIVE (NEGATIVE); Opiate,Urine NEGATIVE (NEGATIVE); PCP,Urine NEGATIVE (NEGATIVE); THC,Urine POSITIVE (NEGATIVE)
[2020-05-08] MEDS: TYLENOL EXTRA STRENGTH 500 MG PO PRN ×3 (01:17→18:24)
[2020-05-08] MEDS: Lactated Ringers 1,000 ML IV SCH ×3 (04:48→12:17)
[2020-05-08] MEDS ORDERED: OB EPIDURAL NAROPIN/SUFENTANIL IN NACL EPIDURAL PRN (09:25)
[2020-05-08] MEDS ORDERED: Lactated Ringers 1,000 ML IV ONE (09:25)
[2020-05-08] MEDS ORDERED: Ephedrine Sulfate 50 MG/ML IV PRN (09:25)
[2020-05-08] MEDS ORDERED: PITOCIN 30 UNITS/ LR 500 ML 30 UNITS/500 ML IV.SOLN. IV SCH (12:00)
[2020-05-08] MEDS: PITOCIN 30 UNITS/ LR 500 ML 30 UNITS/500 ML IV.SOLN. IV SCH (12:11)
[2020-05-08] MEDS ORDERED: Adacel Vial IM ONE (14:38)
[2020-05-08] MEDS ORDERED: LANSINOH 40 GM TOP PRN (14:38)
[2020-05-08] MEDS ORDERED: Dermoplast Spray TP PRN (14:38)
[2020-05-08] MEDS: TUCKS TP PRN (15:02)
[2020-05-08] MEDS: MOTRIN 400 MG PO PRN ×2 (15:02→22:17)
[2020-05-08] MEDS: Colace 100 MG PO SCH (22:16)
[2020-05-09] MEDS: TYLENOL EXTRA STRENGTH 500 MG PO PRN ×2 (01:31→20:19)
[2020-05-09] MEDS: NORCO 5/325 MG PO PRN ×3 (03:05→23:59)
[2020-05-09] MEDS: MOTRIN 400 MG PO PRN ×3 (06:07→22:04)
[2020-05-09 06:13] LABS: Absolute Neutrophil Ct (ANC) 12.21 (1.4-6.9); BASOPHIL % 0.1 % (0.0-0.4); Basophil (Absolute #) 0.01 (0-0.4); Eosinophil % 0.4 % (0.00-5.0); Eosinophil (Absolute #) 0.05 (0-0.5); Hematocrit 27.3 % (35-47); Hemoglobin 8.6 gm/dl (12.0-16.0); Lymphocyte (Absolute #) 0.98 (1.0-4.6); Lymphocytes % 7.1 % (24.0-44.0); Mean Cell Volume 92.9 fl (78-100); Mean Corpuscular Hemoglobin 29.3 pg (26-32); Mean Corpuscular Hgb Concent. 31.5 g/dl (32-36); Mean Platelet Volume 10.1 fl (7.5-11.0); Monocyte (Absolute #) 0.61 (0.0-1.3); Monocytes % 4.4 % (0.0-12.0); Platelet Count 231 K/mm3 (150-450); Red Blood Count 2.94 M/mm3 (4.1-5.4); Red Cell Distribution Width 14.4 % (11.5-14.0); White Blood Count 13.9 K/mm3 (4.0-10.5)
[2020-05-09] MEDS: Colace 100 MG PO SCH ×2 (09:27→22:04)
[2020-05-09] MEDS: FERREX 150 PO SCH (09:27)
[2020-05-09] MEDS: TUCKS TP PRN (17:06)
[2020-05-09] MEDS: Lactated Ringers 1,000 ML IV SCH ×3 (22:04→22:06)
[2020-05-09] MEDS: PITOCIN 30 UNITS/ LR 500 ML 30 UNITS/500 ML IV.SOLN. IV SCH (22:05)
[2020-05-10 01:08] VITALS: O2SAT 98
[2020-05-10] MEDS: TYLENOL EXTRA STRENGTH 500 MG PO PRN ×2 (05:35→10:22)
[2020-05-10] MEDS: MOTRIN 400 MG PO PRN ×2 (05:36→14:55)
--- NOTE | 2020-05-10 09:11 | PCM.NOTE ---
Date and Time: 05/10/20909 Subjective Assessment: ppd 2 pt resting in bed and doing well vss afebrile abd; soft uterus; firm lochia; mild hgb; 8.6 a/p sp ppd 2 dc home today fu office 3 wks OBJECTIVE DATA Vital Signs: Vital Signs - 24 hr Temp Pulse Resp BP Pulse Ox 05/10/20 08:00 98.4 F 81 20 131/78 98 05/10/20 06:00 98.4 F 67 20 113/53 98 05/10/20 01:00 98.4 F 73 18 127/64 98 05/09/20 20:00 98.6 F 82 18 128/60 100 05/09/20 14:00 99.4 F 98 H 20 124/69 100 Pain Assessment - Last Documented Pain Intensity [Bilateral 4 Lower] Pain Intensity 0 Pain Scale Used 0-10 Pain Scale Intake and Output: Intake & Output 05/07/20 05/08/20 05/09/20 05/10/20 11:59 11:59 11:59 11:59 Intake Total 2850 675 1800 Output Total 400 400 Balance 2450 275 1800 Weight 99.798 kg Lab Results: Lab Results-Last 24 Hours 05/07/20 Range/Units 00:00 Hep Bs Antigen Negative (Negative)
--- NOTE | 2020-05-10 09:17 | PCM.DS ---
Discharge Summary Date of Admission: 05/08/20 09:30 Admitting Physician: FARSHAD CABELLO DO Consults: Consults on Case 05/08/20 14:42 Notify Physician ROUTINE Primary Care Provider: GAB MURILLO Allergies Allergies ketorolac [From Toradol] Allergy (Verified 11/25/18 18:05) Hospital Summary - Hospital Course Hospital Course: pt admitted on may 07 for induction and delivered live baby girl via without complication on may 08. pt had received 3 doses of cytotec with subsequent pitocin and had an epidural during her labor. pt delivered without complication and during period did well and had hgb of 8.6 . pt given iron supplementation upon discharge. pt advisd to fu in 3 wks for care. all questions answered to her satisfaction. - Vitals & Intake/Output Vital Signs: Vital Signs Temperature 98.4 F 05/10/20 08:00 Pulse Rate 81 05/10/20 08:00 Respiratory Rate 20 05/10/20 08:00 Blood Pressure 131/78 05/10/20 08:00 O2 Sat by Pulse Oximetry 98 05/10/20 08:00 Intake & Output: Intake & Output 05/07/20 05/08/20 05/09/20 05/10/20 11:59 11:59 11:59 11:59 Intake Total 2850 675 1800 Output Total 400 400 Balance 2450 275 1800 Weight 99.798 kg - Lab Result Diagrams: 05/09/20 05:09 Lab Results-Last 24 Hrs: Lab Results-Last 24 Hours 05/07/20 Range/Units 00:00 Hep Bs Antigen Negative (Negative) - Procedures and Test Procedures and Tests throughout Hospitalization: Therapy Orders & Screens 05/08/20 13:45 Standby ROUTINE Comment: Final Diagnosis/Problem List - Final Discharge Diagnosis/Problem (1) Vaginal delivery Current Visit: Yes Status: Acute Code(s): O80 - ENCOUNTER FOR FULL-TERM UNCOMPLICATED DELIVERY - Discharge Disposition: Home, Self-Care Condition: Stable Prescriptions: No Action Vits W-Ca,Fe,FA(<1Mg) [] 1 mg PO DAILY Follow up with: GAB MURILLO MD [Primary Care Provider] - FARSHAD CABELLO DO [ACTIVE STAFF] - Call for Appointment (should fu in 3 wks for care.)
[2020-05-10] MEDS: FERREX 150 PO SCH (10:22)
[2020-05-10] MEDS: Colace 100 MG PO SCH (10:22)
[2020-05-10 15:11] VITALS: BP 119/57; PULSE 80
== END 2020-05-10 18:50 | disposition home or self-care (01) | DRG 807 ==
LOC: OB 09:30 → OBSVTOIN 05-08 09:30
PROVIDERS: ADMIT Obstetrics & Gynecology; ATTEND Obstetrics & Gynecology
PROC: 10E0XZZ Delivery of Products of Conception, External Approach (ICD-10-PCS; principal; 2020-05-08)
PROC: 0KQM0ZZ Repair Perineum Muscle, Open Approach (ICD-10-PCS; 2020-05-08)
DX: O70.1 Second degree perineal laceration during delivery (principal); Z37.0 Single live birth; Z3A.39 39 weeks gestation of pregnancy; D64.9 Anemia, unspecified
CPT/HCPCS: 36415; 59409; 80307; 85025; 87340; 90715; 94799; G0378; J2590; J2795; A9270-GY

== ENCOUNTER 2022-09-30 01:46 | Observation (INO) | payer OTHER ==
[2022-09-30 04:07] VITALS: BP 123/55; PULSE 105; RESP 18; TEMP 98.3; O2SAT 97
[2022-09-30 04:08] LABS: Appearance Cloudy (Clear); Bacteria Moderate /HPF (None Seen); Bilirubin Negative (Negative); Blood Negative (Negative); Epithelial Cells Rare /HPF (None Seen); Glucose, Urine Negative (Negative); Hyaline Casts NONE SEEN /LPF (0-2); Ketones Negative (Negative); Leukocyte Esterase Negative (Negative); Nitrite Negative (Negative); Ph 5.5 (4.6-8.0); Protein,Urine Dip Trace (Negative); RBC 0-2 /HPF (0-5); Specific Gravity >=1.030 (1.005-1.030)
[2022-09-30 04:11] LABS: ADD URINE CULTURE? YES (NO)
[2022-09-30 05:46] LABS: Hematocrit 27.6 % (35-47); Mean Corpuscular Hgb Concent. 32.6 g/dL (32-36); Mean Platelet Volume 9.2 fL (7.5-11.0); Platelet Count 484 x10^3/uL (150-450); Red Cell Distribution Width 14.4 % (11.5-14.0); White Blood Count 17.8 x10^3/uL (4.0-10.5)
[2022-09-30 05:58] LABS: ALBUMIN 2.7 g/dL (3.5-5.0); ALKALINE PHOSPHATASE 176 U/L (38-126); ANION GAP 9.5 MEQ/L (5-15); BLOOD UREA NITROGEN 8 mg/dL (7-17); CHLORIDE 108 mmol/L (98-107); Calcium 8.3 mg/dL (8.4-10.2); Carbon Dioxide 20 mmol/L (22-30); Creatinine 1 0.41 mg/dL (0.52-1.04); EST GLOMERULAR FILTRATION RATE > 60.0 ML/MIN; Glucose 81 mg/dL (74-106); Potassium 3.8 mmol/L (3.5-5.1); SGOT/AST 21 U/L (14-36); SGPT/ALT 14 U/L (0-35); SODIUM 133 mmol/L (137-145); Total Protein 5.4 g/dL (6.3-8.2)
[2022-09-30] MEDS ORDERED: NON-FORMULARY ITEM (Prenatal Vits W-Ca,Fe,Fa(<1mg) [Prenatal] 1 EACH Tablet) PO SCH (10:00)
[2022-09-30] MEDS ORDERED: THERAGRAN MULTIVITAMIN PO SCH (10:00)
== END 2022-09-30 06:40 | disposition home or self-care (01) ==
LOC: OB 01:46 → UNDOADMOB 01:46
PROVIDERS: ADMIT Family Medicine; ATTEND Family Medicine
DX: Z34.83 Encounter for supervision of other normal pregnancy, third trimester (principal); Z3A.38 38 weeks gestation of pregnancy
CPT/HCPCS: 36415; 80053; 81001; 85027; 87086; G0378; G0379

== ENCOUNTER 2022-10-05 13:03 | Inpatient (IN) | payer OTHER ==
[2022-10-05] MEDS ORDERED: Zofran 4 MG/2 ML VIAL IV PRN (13:07)
[2022-10-05] MEDS ORDERED: XYLOCAINE 1% HCL 20 ML MDV IJ PRN (18:00)
[2022-10-05 19:06] LABS: Absolute Neutrophil Ct (ANC) 9.86 x10^3/uL (1.4-6.9); BASOPHIL % 0.3 % (0.0-0.4); Basophil (Absolute #) 0.05 x10^3/uL (0-0.4); Eosinophil % 0.8 % (0.00-5.0); Eosinophil (Absolute #) 0.12 x10^3/uL (0-0.5); Hematocrit 28.5 % (35-47); Hemoglobin 9.2 g/dL (12.0-16.0); IMMATURE GRAN # 0.19 x10^3u/L (0.00-0.03); IMMATURE GRAN % 1.3 % (0.00-0.4); Lymphocytes % 22.8 % (24.0-44.0); Mean Cell Volume 89.1 fL (78-100); Mean Corpuscular Hemoglobin 28.8 pg (26-32); Mean Corpuscular Hgb Concent. 32.3 g/dL (32-36); Monocyte (Absolute #) 0.97 x10^3/uL (0.0-1.3); Monocytes % 6.7 % (0.0-12.0); NUCLEATED RBC # 0.02 x10^3u/L (0.00-0.01); NUCLEATED RBC % 0.1 % (0.00-0.1); Neutrophil % 68.1 % (36.0-66.0); Platelet Count 480 x10^3/uL (150-450); Red Cell Distribution Width 13.9 % (11.5-14.0); White Blood Count 14.5 x10^3/uL (4.0-10.5)
[2022-10-05] MEDS: CYTOTEC PO SCH ×2 (19:46→21:44)
[2022-10-05 21:05] LABS: ABO TYPING A; Antibody Screen NEGATIVE (NEGATIVE); RH TYPING POSITIVE
[2022-10-05 21:08] LABS: Amphetamine,Urine NEGATIVE (NEGATIVE); Barbiturate,Urine NEGATIVE (NEGATIVE); Benzodiazepine,Urine NEGATIVE (NEGATIVE); Cocaine,Urine NEGATIVE (NEGATIVE); Methadone,Urine NEGATIVE (NEGATIVE); Opiate,Urine NEGATIVE (NEGATIVE); PCP,Urine NEGATIVE (NEGATIVE); THC,Urine POSITIVE (NEGATIVE)
[2022-10-05] MEDS: Lactated Ringers 1,000 ML IV SCH (21:47)
[2022-10-05] MEDS ORDERED: STADOL 2 MG IV PRN (21:55)
[2022-10-05] MEDS: Tums EX 750 MG PO PRN (22:04)
[2022-10-05] MEDS: Nubain 10 MG/ML IV PRN (22:29)
[2022-10-06] MEDS: Lactated Ringers 1,000 ML IV SCH ×4 (02:00→09:26)
[2022-10-06] MEDS: CYTOTEC PO SCH ×3 (02:01→04:04)
[2022-10-06] MEDS: Nubain 10 MG/ML IV PRN (02:30)
[2022-10-06] MEDS ORDERED: PITOCIN 30 UNITS/ LR 500 ML 30 UNITS/500 ML PLAST..BAG IV SCH (06:00)
[2022-10-06] MEDS ORDERED: Ephedrine Sulfate 50 MG/ML IV PRN (08:00)
[2022-10-06] MEDS ORDERED: FENTANYL 2 MCG-BUPIV 0.125%-NS 250 ML Epidur 250 ML EPIDURAL SCH (08:00)
[2022-10-06 11:09] LABS: Appearance Clear (Clear); Bacteria None Seen /HPF (None Seen); Bilirubin Negative (Negative); Blood Negative (Negative); Epithelial Cells None Seen /HPF (None Seen); Glucose, Urine Negative (Negative); Hyaline Casts NONE SEEN /LPF (0-2); Ketones Negative (Negative); Leukocyte Esterase Negative (Negative); Nitrite Negative (Negative); Protein,Urine Dip Negative (Negative); RBC 0-2 /HPF (0-5); Urobilinogen 0.2 mg/dL (0.2); WBC 0-2 /HPF (0-5)
[2022-10-06] MEDS ORDERED: Dermoplast Spray TP PRN (11:18)
[2022-10-06] MEDS ORDERED: TUCKS TP PRN (11:18)
[2022-10-06 11:19] LABS: ADD URINE CULTURE? NO (NO)
[2022-10-06] MEDS ORDERED: Adacel Vial IM ONE (15:00)
[2022-10-06] MEDS: MOTRIN 400 MG PO PRN ×2 (15:27→21:17)
[2022-10-06] MEDS: TYLENOL EXTRA STRENGTH 500 MG PO PRN (16:39)
[2022-10-06] MEDS: Tums EX 750 MG PO PRN (16:43)
[2022-10-07] MEDS: MOTRIN 400 MG PO PRN ×2 (03:25→20:11)
[2022-10-07 05:43] LABS: Absolute Neutrophil Ct (ANC) 8.32 x10^3/uL (1.4-6.9); BASOPHIL % 0.4 % (0.0-0.4); Basophil (Absolute #) 0.06 x10^3/uL (0-0.4); Eosinophil (Absolute #) 0.14 x10^3/uL (0-0.5); Hematocrit 27.4 % (35-47); Hemoglobin 8.9 g/dL (12.0-16.0); IMMATURE GRAN # 0.09 x10^3u/L (0.00-0.03); IMMATURE GRAN % 0.7 % (0.00-0.4); Lymphocytes % 30.5 % (24.0-44.0); Mean Cell Volume 87.5 fL (78-100); Mean Corpuscular Hemoglobin 28.4 pg (26-32); Mean Corpuscular Hgb Concent. 32.5 g/dL (32-36); Mean Platelet Volume 9.1 fL (7.5-11.0); Monocyte (Absolute #) 0.94 x10^3/uL (0.0-1.3); Monocytes % 6.8 % (0.0-12.0); Neutrophil % 60.6 % (36.0-66.0); Platelet Count 441 x10^3/uL (150-450); Red Blood Count 3.13 x10^6/uL (4.1-5.4); Red Cell Distribution Width 14.4 % (11.5-14.0); White Blood Count 13.8 x10^3/uL (4.0-10.5)
[2022-10-07] MEDS: TYLENOL EXTRA STRENGTH 500 MG PO PRN (08:35)
[2022-10-07] MEDS: Docusate Sodium 100 MG PO SCH ×2 (08:36→20:10)
[2022-10-07] MEDS: FERREX 150 PO SCH (08:36)
[2022-10-07 12:40] LABS: RPR Non Reactive (Non Reactive)
[2022-10-08] MEDS: TYLENOL EXTRA STRENGTH 500 MG PO PRN (00:36)
[2022-10-08] MEDS: Docusate Sodium 100 MG PO SCH (10:18)
[2022-10-08] MEDS: FERREX 150 PO SCH (10:18)
--- NOTE | 2022-10-08 12:14 | PCM.DS ---
Discharge Summary Date of Admission: 10/06/22 08:35 Admitting Physician: GAB MURILLO Consults: Consults on Case 10/06/22 16:33 Navigation ONCE Primary Care Provider: GAB MURILLO Allergies Allergies No Known Drug Allergies Allergy (Verified 09/30/22 03:40) Hospital Summary - Hospital Course Hospital Course: patient induced at 39wks, uncomplicated . mild lochia, prosper po and minimal pain. doing great - Vitals & Intake/Output Vital Signs: Vital Signs Temperature 98.8 F 10/08/22 02:00 Pulse Rate 66 10/08/22 02:00 Respiratory Rate 16 10/08/22 02:00 Blood Pressure 103/54 10/08/22 02:00 O2 Sat by Pulse Oximetry 98 10/08/22 02:00 Intake & Output: Intake & Output 10/06/22 10/07/22 10/08/22 10/09/22 11:59 11:59 11:59 11:59 Intake Total 5525 4025 3100 Output Total 900 400 Balance 4625 3625 3100 Weight 91.138 kg - Lab Result Diagrams: 10/07/22 05:32 Lab Results-Last 24 Hrs: Lab Results-Last 24 Hours 10/05/22 Range/Units 18:58 RPR Non Reactive (Non Reactive) Micro Results-Entire Visit: Microbiology 10/06/22 10:00 Urine Culture - Final Catherized NO GROWTH Discharge Exam General Appearance: no apparent distress Neurologic Exam: alert, oriented x 3 Respiratory Exam: normal breath sounds, lungs clear, No respiratory distress Cardiovascular Exam: regular rate/rhythm, normal heart sounds Gastrointestinal/Abdomen Exam: soft, other (fundus firm) Extremity Exam: normal inspection, normal range of motion Skin Exam: normal color, warm, dry Final Diagnosis/Problem List - Final Discharge Diagnosis/Problem (1) Normal vaginal delivery Current Visit: Yes Status: Acute Code(s): O80 - ENCOUNTER FOR FULL-TERM UNCOMPLICATED DELIVERY - Discharge Disposition: Home, Self-Care Condition: Stable Prescriptions: Continue Vits W-Ca,Fe,FA(<1Mg) [] 1 mg PO DAILY Follow up with: GAB MURILLO MD [Primary Care Provider] - 6 weeks
[2022-10-08 16:06] VITALS: BP 124/73; PULSE 50; RESP 18; TEMP 98.3; O2SAT 96
== END 2022-10-08 15:50 | disposition home or self-care (01) | DRG 807 ==
LOC: OB 18:17 → OBSVTOIN 10-06 08:35 → MED SURG 10-06 21:23
PROVIDERS: ADMIT Family Medicine; ATTEND Family Medicine
PROC: 10E0XZZ Delivery of Products of Conception, External Approach (ICD-10-PCS; principal; 2022-10-06)
DX: O69.81X0 Labor and delivery complicated by cord around neck, without compression, not applicable or unspecified (principal); Z37.0 Single live birth; Z3A.39 39 weeks gestation of pregnancy; Z20.828 Contact with and (suspected) exposure to other viral communicable diseases
CPT/HCPCS: 36415; 80307; 81001; 85025; 86592; 86850; 86900; 86901; 87086; 90715; G0378; G0379; J2300; J2590; A9270-GY